=== PATIENT | male | born 1955 | race Caucasian/White ===

== ENCOUNTER 2018-09-15 12:50 | Outpatient (CLI) | payer OTHER | END 2018-09-15 23:59 | disposition home health service (06) | LOC: WOU 12:50 | PROVIDERS: ATTEND Surgery | DX: L89.154 Pressure ulcer of sacral region, stage 4 (principal); E66.09 Other obesity due to excess calories; Z68.33 Body mass index [BMI] 33.0-33.9, adult; R26.2 Difficulty in walking, not elsewhere classified; J44.9 Chronic obstructive pulmonary disease, unspecified; Z79.51 Long term (current) use of inhaled steroids; Z85.820 Personal history of malignant melanoma of skin; F17.210 Nicotine dependence, cigarettes, uncomplicated; E11.9 Type 2 diabetes mellitus without complications | CPT/HCPCS: 11043; A6402; A6407; Z7610 ==

== ENCOUNTER 2018-12-01 12:20 | Outpatient (CLI) | payer OTHER | END 2018-12-01 23:59 | disposition home health service (06) | LOC: WOU 12:20 | PROVIDERS: ATTEND Surgery | DX: L89.154 Pressure ulcer of sacral region, stage 4 (principal); R26.2 Difficulty in walking, not elsewhere classified; E66.9 Obesity, unspecified; Z68.33 Body mass index [BMI] 33.0-33.9, adult; Z72.0 Tobacco use; S51.012D Laceration without foreign body of left elbow, subsequent encounter; X58.XXXD Exposure to other specified factors, subsequent encounter | CPT/HCPCS: 11043; A6402; A6407; Z7610 ==

== ENCOUNTER 2018-12-26 11:50 | Outpatient (CLI) | payer OTHER | END 2018-12-26 23:59 | disposition home health service (06) | LOC: WOU 11:50 | PROVIDERS: ATTEND Surgery | DX: L89.154 Pressure ulcer of sacral region, stage 4 (principal); R26.2 Difficulty in walking, not elsewhere classified; E66.09 Other obesity due to excess calories; Z68.33 Body mass index [BMI] 33.0-33.9, adult; F17.210 Nicotine dependence, cigarettes, uncomplicated | CPT/HCPCS: 11043; A6402; A6407; Z7610 ==

== ENCOUNTER 2019-01-16 12:36 | Outpatient (CLI) | payer OTHER | END 2019-01-16 23:59 | disposition home health service (06) | LOC: WOU 12:36 | PROVIDERS: ATTEND Surgery | DX: L89.154 Pressure ulcer of sacral region, stage 4 (principal); R26.2 Difficulty in walking, not elsewhere classified; E66.09 Other obesity due to excess calories; Z68.33 Body mass index [BMI] 33.0-33.9, adult; Z72.0 Tobacco use; E11.9 Type 2 diabetes mellitus without complications; F41.8 Other specified anxiety disorders; Z79.891 Long term (current) use of opiate analgesic; Z85.820 Personal history of malignant melanoma of skin | CPT/HCPCS: 11043; A6402; A6407; J3490 ==

== ENCOUNTER 2019-02-06 11:45 | Outpatient (CLI) | payer OTHER | END 2019-02-06 23:59 | disposition home or self-care (01) | LOC: WOU 11:45 | PROVIDERS: ATTEND Surgery | DX: L89.154 Pressure ulcer of sacral region, stage 4 (principal); S91.312A Laceration without foreign body, left foot, initial encounter; X58.XXXA Exposure to other specified factors, initial encounter; Y92.89 Other specified places as the place of occurrence of the external cause; R26.2 Difficulty in walking, not elsewhere classified; E66.09 Other obesity due to excess calories; Z68.33 Body mass index [BMI] 33.0-33.9, adult; F17.210 Nicotine dependence, cigarettes, uncomplicated; E11.9 Type 2 diabetes mellitus without complications; Z79.891 Long term (current) use of opiate analgesic | CPT/HCPCS: 11042; 11043; 11045; A6402 ==

== ENCOUNTER 2019-02-27 12:00 | Outpatient (CLI) | payer OTHER | END 2019-02-27 23:59 | disposition home health service (06) | LOC: WOU 12:00 | PROVIDERS: ATTEND Surgery | DX: L89.154 Pressure ulcer of sacral region, stage 4 (principal); R26.2 Difficulty in walking, not elsewhere classified; E66.09 Other obesity due to excess calories; Z68.33 Body mass index [BMI] 33.0-33.9, adult; F17.210 Nicotine dependence, cigarettes, uncomplicated; S91.312A Laceration without foreign body, left foot, initial encounter; X58.XXXA Exposure to other specified factors, initial encounter; Y92.89 Other specified places as the place of occurrence of the external cause; Z85.820 Personal history of malignant melanoma of skin; Z79.891 Long term (current) use of opiate analgesic | CPT/HCPCS: 11042; 11043; A6402 ==

== ENCOUNTER 2019-04-10 12:15 | Outpatient (CLI) | payer OTHER | END 2019-04-10 23:59 | disposition home health service (06) | LOC: WOU 12:15 | PROVIDERS: ATTEND Surgery | DX: L89.154 Pressure ulcer of sacral region, stage 4 (principal); R26.2 Difficulty in walking, not elsewhere classified; E66.09 Other obesity due to excess calories; Z68.33 Body mass index [BMI] 33.0-33.9, adult; F17.210 Nicotine dependence, cigarettes, uncomplicated; S91.312A Laceration without foreign body, left foot, initial encounter; X58.XXXA Exposure to other specified factors, initial encounter; Y92.89 Other specified places as the place of occurrence of the external cause; E11.9 Type 2 diabetes mellitus without complications; I48.91 Unspecified atrial fibrillation; Z79.891 Long term (current) use of opiate analgesic | CPT/HCPCS: 11042; 11043; A6402 ×2 ==

== ENCOUNTER 2019-05-08 11:20 | Outpatient (CLI) | payer OTHER | END 2019-05-08 23:59 | disposition home health service (06) | LOC: WOU 11:20 | PROVIDERS: ATTEND Surgery | DX: L89.154 Pressure ulcer of sacral region, stage 4 (principal); S91.312A Laceration without foreign body, left foot, initial encounter; S51.011A Laceration without foreign body of right elbow, initial encounter; W19.XXXA Unspecified fall, initial encounter; Y92.89 Other specified places as the place of occurrence of the external cause; E66.9 Obesity, unspecified; Z68.33 Body mass index [BMI] 33.0-33.9, adult; F17.210 Nicotine dependence, cigarettes, uncomplicated; Z79.891 Long term (current) use of opiate analgesic | CPT/HCPCS: 11042; 11043; A6402 ==

== ENCOUNTER 2019-06-05 13:28 | Outpatient (CLI) | payer OTHER | END 2019-06-05 23:59 | disposition home health service (06) | LOC: WOU 13:28 | PROVIDERS: ATTEND Surgery | DX: L89.154 Pressure ulcer of sacral region, stage 4 (principal); R26.2 Difficulty in walking, not elsewhere classified; E66.09 Other obesity due to excess calories; S91.312A Laceration without foreign body, left foot, initial encounter; X58.XXXA Exposure to other specified factors, initial encounter; Y92.89 Other specified places as the place of occurrence of the external cause; E66.9 Obesity, unspecified; Z68.33 Body mass index [BMI] 33.0-33.9, adult; F17.210 Nicotine dependence, cigarettes, uncomplicated; Z79.891 Long term (current) use of opiate analgesic; S51.011D Laceration without foreign body of right elbow, subsequent encounter; W19.XXXD Unspecified fall, subsequent encounter | CPT/HCPCS: 11042; 11043; A6402 ==

== ENCOUNTER 2019-09-04 12:15 | Outpatient (CLI) | payer OTHER | END 2019-09-04 23:59 | disposition home health service (06) | LOC: WOU 12:15 | PROVIDERS: ATTEND Surgery | DX: L89.154 Pressure ulcer of sacral region, stage 4 (principal); E66.9 Obesity, unspecified; Z68.33 Body mass index [BMI] 33.0-33.9, adult; E11.9 Type 2 diabetes mellitus without complications; F17.210 Nicotine dependence, cigarettes, uncomplicated; Z79.899 Other long term (current) drug therapy | CPT/HCPCS: 11043 ==

== ENCOUNTER 2019-10-09 09:05 | Outpatient (CLI) | payer OTHER | END 2019-10-09 23:59 | disposition home health service (06) | LOC: WOU 09:05 | PROVIDERS: ATTEND Surgery | DX: L89.154 Pressure ulcer of sacral region, stage 4 (principal); E11.9 Type 2 diabetes mellitus without complications; E66.09 Other obesity due to excess calories; Z68.33 Body mass index [BMI] 33.0-33.9, adult; F17.210 Nicotine dependence, cigarettes, uncomplicated | CPT/HCPCS: 11043; A6407 ==

== ENCOUNTER 2019-11-13 10:10 | Outpatient (CLI) | payer OTHER | END 2019-11-13 23:59 | disposition home health service (06) | LOC: WOU 10:10 | PROVIDERS: ATTEND Surgery | DX: L89.154 Pressure ulcer of sacral region, stage 4 (principal); E66.01 Morbid (severe) obesity due to excess calories; Z68.33 Body mass index [BMI] 33.0-33.9, adult; F17.210 Nicotine dependence, cigarettes, uncomplicated; E11.9 Type 2 diabetes mellitus without complications; Z99.3 Dependence on wheelchair | CPT/HCPCS: 11043; A6407 ==

== ENCOUNTER 2020-01-01 09:30 | Outpatient (CLI) | payer OTHER | END 2020-01-01 23:59 | disposition home health service (06) | LOC: WOU 09:30 | PROVIDERS: ATTEND Surgery | DX: L89.154 Pressure ulcer of sacral region, stage 4 (principal); E66.9 Obesity, unspecified; Z68.33 Body mass index [BMI] 33.0-33.9, adult; F17.210 Nicotine dependence, cigarettes, uncomplicated | CPT/HCPCS: 11043 ==

== ENCOUNTER 2020-02-05 09:25 | Outpatient (CLI) | payer OTHER | END 2020-02-05 23:59 | disposition home health service (06) | LOC: WOU 09:25 | PROVIDERS: ATTEND Surgery | DX: L89.154 Pressure ulcer of sacral region, stage 4 (principal); F17.210 Nicotine dependence, cigarettes, uncomplicated; E66.9 Obesity, unspecified; Z68.33 Body mass index [BMI] 33.0-33.9, adult; Z79.891 Long term (current) use of opiate analgesic | CPT/HCPCS: 11043 ==

== ENCOUNTER 2021-01-09 14:10 | Outpatient (CLI) | payer OTHER ==
[2021-01-09] MEDS ORDERED: Z GUARD REMEDY 2 OZ OINT TP ONE (14:44)
== END 2021-01-09 23:59 | disposition home health service (06) ==
LOC: WOU 14:10
PROVIDERS: ATTEND Surgery
DX: L89.154 Pressure ulcer of sacral region, stage 4 (principal); F17.210 Nicotine dependence, cigarettes, uncomplicated; E66.9 Obesity, unspecified; Z68.33 Body mass index [BMI] 33.0-33.9, adult
CPT/HCPCS: 11043

== ENCOUNTER 2021-02-06 14:20 | Outpatient (CLI) | payer OTHER | END 2021-02-06 23:59 | disposition home health service (06) | LOC: WOU 14:20 | PROVIDERS: ATTEND Surgery | DX: L89.154 Pressure ulcer of sacral region, stage 4 (principal); E66.9 Obesity, unspecified; Z68.33 Body mass index [BMI] 33.0-33.9, adult; F17.200 Nicotine dependence, unspecified, uncomplicated | CPT/HCPCS: 11043 ==

== ENCOUNTER 2021-03-06 14:35 | Outpatient (CLI) | payer OTHER | END 2021-03-06 23:59 | disposition home health service (06) | LOC: WOU 14:35 | PROVIDERS: ATTEND Surgery | DX: L89.154 Pressure ulcer of sacral region, stage 4 (principal); E66.9 Obesity, unspecified; Z68.33 Body mass index [BMI] 33.0-33.9, adult; F41.9 Anxiety disorder, unspecified; F17.210 Nicotine dependence, cigarettes, uncomplicated | CPT/HCPCS: 11043 ==

== ENCOUNTER 2021-05-08 14:00 | Outpatient (CLI) | payer OTHER ==
[2021-05-08] MEDS ORDERED: Z GUARD REMEDY 2 OZ OINT TP ONE (14:39)
== END 2021-05-08 23:59 | disposition home health service (06) ==
LOC: WOU 14:00
PROVIDERS: ATTEND Surgery
DX: L89.154 Pressure ulcer of sacral region, stage 4 (principal); E66.9 Obesity, unspecified; Z68.33 Body mass index [BMI] 33.0-33.9, adult; F41.9 Anxiety disorder, unspecified; F17.210 Nicotine dependence, cigarettes, uncomplicated
CPT/HCPCS: 11043

== ENCOUNTER 2021-06-19 14:05 | Outpatient (CLI) | payer OTHER | END 2021-06-19 23:59 | disposition home health service (06) | LOC: WOU 14:05 | PROVIDERS: ATTEND Surgery | DX: L89.154 Pressure ulcer of sacral region, stage 4 (principal); E66.9 Obesity, unspecified; Z68.33 Body mass index [BMI] 33.0-33.9, adult; Z72.0 Tobacco use; F41.9 Anxiety disorder, unspecified | CPT/HCPCS: 11043 ==

== ENCOUNTER 2021-07-21 12:00 | Outpatient (CLI) | payer OTHER | END 2021-07-21 23:59 | disposition home health service (06) | LOC: WOU 12:00 | PROVIDERS: ATTEND Surgery | DX: L89.154 Pressure ulcer of sacral region, stage 4 (principal); E66.9 Obesity, unspecified; Z68.33 Body mass index [BMI] 33.0-33.9, adult; J44.9 Chronic obstructive pulmonary disease, unspecified; Z85.828 Personal history of other malignant neoplasm of skin; F41.9 Anxiety disorder, unspecified; E11.9 Type 2 diabetes mellitus without complications; F17.210 Nicotine dependence, cigarettes, uncomplicated; Z79.899 Other long term (current) drug therapy | CPT/HCPCS: 11043 ==

== ENCOUNTER 2021-08-21 13:15 | Outpatient (CLI) | payer OTHER | END 2021-08-21 23:59 | disposition home health service (06) | LOC: WOU 13:15 | PROVIDERS: ATTEND Surgery | DX: L89.154 Pressure ulcer of sacral region, stage 4 (principal); F17.210 Nicotine dependence, cigarettes, uncomplicated; E11.9 Type 2 diabetes mellitus without complications; E66.9 Obesity, unspecified; Z68.33 Body mass index [BMI] 33.0-33.9, adult; F41.9 Anxiety disorder, unspecified; Z91.19 Patient's noncompliance with other medical treatment and regimen | CPT/HCPCS: 11043 ==

== ENCOUNTER 2021-09-25 12:50 | Outpatient (CLI) | payer OTHER ==
[2021-09-25] MEDS ORDERED: Z GUARD REMEDY 2 OZ OINT TP ONE (13:00)
== END 2021-09-25 23:59 | disposition home health service (06) ==
LOC: WOU 12:50
PROVIDERS: ATTEND Surgery
DX: L89.154 Pressure ulcer of sacral region, stage 4 (principal); E66.9 Obesity, unspecified; Z68.33 Body mass index [BMI] 33.0-33.9, adult; Z72.0 Tobacco use; F41.9 Anxiety disorder, unspecified
CPT/HCPCS: 11043

== ENCOUNTER 2023-02-11 13:15 | Outpatient (CLI) | payer OTHER | END 2023-02-11 23:59 | disposition home or self-care (01) | LOC: WOU 13:15 | PROVIDERS: ATTEND Surgery | DX: L89.154 Pressure ulcer of sacral region, stage 4 (principal); E11.9 Type 2 diabetes mellitus without complications; F17.210 Nicotine dependence, cigarettes, uncomplicated; E66.9 Obesity, unspecified; Z68.34 Body mass index [BMI] 34.0-34.9, adult | CPT/HCPCS: 11043 ==